=== PATIENT | male | born 1970 | race African-American/Black ===

== ENCOUNTER 2018-08-23 23:13 | Inpatient (IN) | payer OTHER ==
[~2018-08-23] VITALS: Ht 188 cm; Wt 147.4 kg
[2018-08-23 23:17] VITALS: Ht 188 cm; Wt 147.4 kg
--- NOTE | 2018-08-23 23:33 | NUR ---
PT BIB [facility] FOR ABDOMINAL PAIN X 3DAYS WITH N/V ON AND OFF THROUGHOUT NIGHT PT EXPRESSED PAIN 10/10 TO UPPER EPIGASTRIC AREA. PT IS A/O X 4 SPEECH MOOD AFFECT WNL. ABDOMIN IN DISTENDED AND HARD. DECREASED BOWL SOUNDS IN 3 QUADRANTS WITH HYPERACTIVE SOUNDS IN RIGHT UPPER QUADRANT SKIN HAS MULTIPLE CLOSED SCARES TO ABDOMIN AND BACK FROM GUNSHOOT WOUNDS. PT HAS LEFT LEG AMBUTATION. RESPIRATIONS ARE EVEN AND SWALLOW PT HAS HX OF HTN, DM AND CARDIAC. PT PLACED ON CHILD NURSE. PULSE OX. GOWN AND O2 DUE TO SATURATION. WILL CONTINUE TO MONITOR AND AWAIT MSE
--- NOTE | 2018-08-23 23:59 | NUR ---
LAB AT BEDSIDE
[2018-08-24] VITALS (7 sets, daily range): BP systolic 104–146; BP diastolic 79–90
--- NOTE | 2018-08-24 00:05 | NUR ---
PT TAKEN TO X RAY
[2018-08-24 00:14] LABS: BASOPHIL % 0.3 % (0-2); PLATELET COUNT 154 x10^3mcL (130-400); RED CELL DISTRIBUTION WIDTH 13.6 % (11.5-14.5)
--- NOTE | 2018-08-24 00:21 | NUR ---
PT REQUESTING WATER. MD ALDRIDGE MADE AWARE AND STATES NO WATER AT THIS TIME UNTIL RESULTS ARE BACK
[2018-08-24 00:28] LABS: CALCIUM 8.7 mg/dL (8.5-10.1); CARBON DIOXIDE 31.2 mmol/L (21-32); CHLORIDE SERUM 96 mmol/L (98-107); CREATININE SERUM 1.1 mg/dL (0.7-1.3); GFR1 > 60 mL/min; GLUCOSE SERUM 253 mg/dL (74-106); POTASSIUM SERUM 4.2 mmol/L (3.5-5.1); SODIUM SERUM 133 mmol/L (136-145)
--- NOTE | 2018-08-24 00:32 | NUR ---
PT AT BEDSIDE. PT STATES PT CHRISTINA OF OSTEOMYELITIS IS REASON FOR L LEG AMPUTATION, UTIS THAT HAVE BECOME SEPTIC X3.
[2018-08-24 00:33] LABS: ALBUMIN 3.5 g/dL (3.4-5.0); ALKALINE PHOSPHATASE 72 U/L (46-116); ALT/SGPT 22 U/L (16-63); AST/SGOT 14 U/L (15-37); BILIRUBIN TOTAL 0.4 mg/dL (0.20-1.00); LIPASE 108 IU/L (73-393); TOTAL PROTEIN, SERUM 7.9 g/dL (6.4-8.2)
--- NOTE | 2018-08-24 00:57 | NUR ---
URINE CATH INSERTED. PT TOLERATED PROCEDURE WELL. NO PAIN NOTED
--- NOTE | 2018-08-24 01:03 | NUR ---
ADMITING MD SPEAKING WITH PT FAMILY ABOUT CURRENT MEDICATIONS. VERIFY THAT MULITPLE MEDICATIONS WITH UNKNOWN DOSAGES. SHE ADVISED THAT SHE WOULD CALL WITH INFORMATION ABOUT MEDICATIONS
[2018-08-24] MEDS ORDERED: ZOCOR20 MG PO (01:55)
[2018-08-24] MEDS ORDERED: MICROZIDE12.5 MG PO (01:57)
[2018-08-24] MEDS ORDERED: CYMBALTA30 M1 PO (01:57)
[2018-08-24] MEDS ORDERED: NOR10 PO (01:57)
[2018-08-24] MEDS ORDERED: JANUVIA100 M1 PO (01:57)
[2018-08-24] MEDS ORDERED: GABAPENTIN800 M1 PO ×2 (01:58→01:59)
[2018-08-24] MEDS ORDERED: LYRICA75 M1 PO (01:58)
[2018-08-24] MEDS ORDERED: AMITRIPTYLINE H25 MG PO (01:59)
[2018-08-24] MEDS ORDERED: CYCLOBENZAPRINE10 MG PO (01:59)
[2018-08-24] MEDS ORDERED: METFORMIN HCL1000 MG PO (01:59)
[2018-08-24] MEDS ORDERED: OXYCODONE HYDRO30 MG PO (02:00)
[2018-08-24] MEDS ORDERED: BACLOFEN20 MG PO (02:01)
[2018-08-24] MEDS ORDERED: CARDURA2 MG PO (02:01)
--- NOTE | 2018-08-24 02:08 | NUR ---
CALLED TO VERIFY HOME MEDICATIONS
[2018-08-24 02:52] LABS: MAGNESIUM 1.5 mg/dL (1.8-2.4); PHOSPHOROUS 2.8 mg/dL (2.5-4.9)
[2018-08-24 03:01] LABS: CHOLESTEROL/HDL RATIO 3.7
[2018-08-24 03:11] LABS: microscopic required? YES; urine erythrocyte 1+ (NEGATIVE)
--- NOTE | 2018-08-24 03:52 | NUR ---
RECEIVED PT FROM ER VIA [facility] ACCOMPANIED WITH NURSE AND EMT, PT WAS ABLE TO TRANSFER HIMSELF FROM [facility] TO BED WITHOUT INCIDENT, PT SEEN, ALERT AND ORIENTED X 4 AND VERY VERBALLY RESPONSIVE, DENIES HEADACHE OR DIZZINESS, BREATHING EVEN AND UNLABORED, LUNG SOUNDS DIMINISHED, ON O2 2L VIA NC, NO RESP DISTRESS NOTED, ON TELE#9 ST, DENIES CHEST PAIN, PULSES PALPABLE TO BUE AND RLE, LEFT BKA, GENERALIZED WEAKNESS BUT ABLE TO REPOSITION HIMSELF IN BED, ABD FIRM AND DISTENDED WITH HYPOACTIVE BS X 4, LAST BM 08/23, DAVIS VIA GRAVITY DRAINING YELLOW URINE, NO OPEN PRESSURE INJURY NOTED, PT REFUSED NGT INSERTION, EXPLAINED THE RISK AND BENEFIT BUT PT STILL REFUSED, REFUSAL TREATMENT FORM SIGNED, DR MCNEIL MADE AWARE, SUPP GIVEN PER MD ORDER, NO DISTRESS NOTED, WILL KEEP TO MONITOR.
[2018-08-24 06:22] LABS: BASOPHIL % 0.2 % (0-2); PLATELET COUNT 148 x10^3mcL (130-400); RED CELL DISTRIBUTION WIDTH 13.6 % (11.5-14.5)
--- NOTE | 2018-08-24 06:26 | NUR ---
PT DROWSY BUT AROUSABLE AFTER MEDICATED WITH ATIVAN 2MG VIA IVP, BREATHING EVEN AND UNLABORED ON O2 2L VIA NC, NO N&V NOTED UPON ARRIVAL, IVF INFUSING WELL, NO DISTRESS NOTED, WILL KEEP TO MONITOR.
[2018-08-24 07:10] LABS: CALCIUM 8.7 mg/dL (8.5-10.1); CARBON DIOXIDE 27.3 mmol/L (21-32); CHLORIDE SERUM 97 mmol/L (98-107); CREATININE SERUM 1.1 mg/dL (0.7-1.3); GFR1 > 60 mL/min; GLUCOSE SERUM 268 mg/dL (74-106); MAGNESIUM 1.6 mg/dL (1.8-2.4); PHOSPHOROUS 3.2 mg/dL (2.5-4.9); POTASSIUM SERUM 4.7 mmol/L (3.5-5.1); SODIUM SERUM 133 mmol/L (136-145)
--- NOTE | 2018-08-24 07:17 | NUR ---
bedside report given to [place]-RN, all questions answered and concerns addressed.
--- NOTE | 2018-08-24 07:50 | NUR ---
RECEIVED PATIENT RESTING IN BED COMFORTABLY, WITH EYES CLOSED, AROUSABLE TO VERBAL STIMULI, PATIENT DROWSY BUT A/O X4, DENIES JIMENEZ OR DIZZINESS. TELE # [address], DENIES CHEST PAIN. BREATHING EVEN UNLABBORED ON O2 2 L/MIN VIA NC, NO DISTRESS NOTED. PATIENT WITH DAVIS CATH TO GRAVITY DRAINING YELLOW URINE, TUBING FREE OF KINKS, BAG IS OFF FLOOR. IV TO LAC INTACT INFUSING NS AT 175 ML/HR FREE FROM REDNESS AND INFILTRATION. PATIENT IS CALM WITH CARE. INSTRUCTED AND REINFORCED ON NPO STATUS, VERBALIZED UNDERSTANDING. SAFETY PRECAUTIONS IN PLACE, WILL MONITOR.
--- NOTE | 2018-08-24 08:30 | NUR ---
PORTABLE XRAY/TECH AT BEDSIDE FOR SBFT
--- NOTE | 2018-08-24 11:25 | NUR ---
PER PROMOTIONS ASSISTANT SHE ASSISTED PATIENT UP OUT OF BED TO USE RESTROOM USING WHEELCHAIR. PATIENT HAD X1 BM, AND ASSISTED BACK INTO BED AND MADE COMFORTABLE. SAFETY PRECAUTIONS MAINTAINED.
--- NOTE | 2018-08-24 12:00 | NUR ---
DR. BENITEZ MADE AWARE OF BS 167, PATIENT IS NPO, PER DR. BENITEZ DO NOT COVER PER SLIDING SCALE. DR. BENITEZ ALSO MADE AWARE SPOKE WITH DR. MONET THIS MORNING AND HE STATED TO HOLD AM MEDICATION, PER DR. BENITEZ CONTINUE TO HOLD PO MEDICATION AT THIS TIME, WILL CARRY OUT ORDER.
--- NOTE | 2018-08-24 13:16 | NUR ---
PATIENT RESTING IN BED WITH EYES CLOSED, RESTING COMFORTABLY NO DISTRESS NOTED. GAMAL AT BEDSIDE, PATIENT UPDATE GIVEN. PATIENTS REQUESTING TO SPEAK WITH MD, DR. BENITEZ MADE AWARE AND WILL BE IN TO SPEAK WITH PATIENT AND . SAFETY PRECAUTIONS IN PLACE. WILL MONITOR.
--- NOTE | 2018-08-24 13:51 | NUR ---
PATIENT C/O 10/10 THROBBING PAIN TO MID STOMACH RADIATING TO MID BACK. MEDICATED WITH NORCO PO (SEE eMAR). ALL NEEDS ATTENDED TO. SAFETY PRECAUTIONS IN PLACE, WILL MONITOR.
[2018-08-24 14:19] LABS: AMPHETAMINE QUAL UR NONE DETECTED (See below)
--- NOTE | 2018-08-24 14:40 | NUR ---
IV TO LAC LEAKING, REMOVED CATH INTACT. NEW IV PLACED TO RIGHT WRIST BY MARCO ANTONIO ANNE, PATIENT TOLERATED WELL, IVF RESUMED. PATIENT RESTING COMFORTABLY IN BED, NO DISTRESS NOTED. WILL MONITOR.
--- NOTE | 2018-08-24 16:15 | NUR ---
DR. BENITEZ MADE AWARE OF SMALL BOWEL FOLLOW THROUGH RESULTS. NO NEW ORDERS RECEIVED.
--- NOTE | 2018-08-24 16:33 | NUR ---
PATIENT C/O PAIN TO EPIGASTRIC AREA RADIATING TO MID BACK IS "ELEVATED", OFFERED FLEXERIL PO (SEE eMAR) BUT PATIENT REFUSED AND IS REQUESTING FOR A "PAIN SHOT." DR. BENITEZ MADE AWARE AND IS IN TO SPEAK WITH PATIENT AT THIS TIME.
--- NOTE | 2018-08-24 17:01 | NUR ---
PATIENT MEDICATED WITH MORPHINE 2 MG IVP (SEE eMAR) FOR PAIN TO EPIGASTRIC AREA RADIATING TO MID BACK 01/14, DESCRIBED IT A TIGHT/PULLING/THROBBING PAIN. ALL NEEDS ATTENDED TO. SAFETY PRECAUTIONS MAINTAINED. WILL MONITOR.
--- NOTE | 2018-08-24 19:20 | NUR ---
BEDSIDE REPORT GIVEN TO MAGUE COX, ALL QUESTIONS AND CONCERNS ADDRESSED, ALL CARES ENDORSED.
--- NOTE | 2018-08-24 19:37 | NUR ---
RECIEVED PT IN BED COMPLAINING OF ACUTE ABD PAIN INFORMED AND RECIEVED ORDER FOR TORADOL FOR PAIN (SEE JUN), PT WAS A/OX4 NO REPORTS OF JIMENEZ OR DIZZINESS, TELE MONITOR 9 ST, NO COMPLAINTS OF CHEST PAIN AT THIS TIME, LUNG SOUNDS DIMINISHED IN THE BILATERAL BASES OTHERWISE CTA, NO SOB AT THIS TIME ON RA, PERIPHERAL PULSES PALPABLE THROUGHOUT, HX OF LEFT BKA NO PEDAL PULSE TO THE LLE, BOWEL SOUNDS ACTIVE, ABD ROUND, DISTENDED AND FIRM, INFORMED DR YIN. PT HAS DAVIS IN PLACE DRAINING CLEAR YELLOW URINE, PT IS ABLE TO REPOSITION IN BED, BUT USES WHEELCHIR,, SAFETY PRECAUTIONS IN PLACE WILL CONTINUE TO MONITOR
--- NOTE | 2018-08-24 20:00 | NUR ---
PT VOMITED INTO A BAG, REPORTED NOT FEELING NAUSEA ANYMORE, PT REQUESTING TO SEE THE DR, NOTIFIED DR YIN, SAID HE WOULD BE THERE SOON, INFORMED PT AND FAMILY OF DR YIN RESPONSE.
--- NOTE | 2018-08-24 20:20 | NUR ---
DR YIN HAS NOT YET COME TO PATIENT BEDSIDE, PT REQUEST TO TALK TO CHARGE NURSE ABOUT TAKING PATIENT OUT OF HOSPITAL AND TO "SOMEWHERE WHO CAN PROVIDE HIM WITH THE CARE HE NEEDS" INFORMED CHARGE NURSE GABRIEL, CALLED COMMERCIAL MORTGAGE BROKER TO, WHO CALLED DR YIN TO GO TO BEDSIDE, DR YIN AT BEDSIDE EXPLAINED PLAN OF CARE AND REASON FOR INSERTION OF NGT, PT HAD REFUSED DURING EVELYN SHIFT DUE TO ANXIETY ABOUT THE PROCEEDURE. DR YIN ORDERED ATIVAN TO BE ADMINISTERED PRIOR TO NGT INSERTION. AFTER DR YIN TALKED TO FAMILY AND PATIENT, THEY AGREED TO NOT LEAVE AMA.
--- NOTE | 2018-08-24 20:45 | NUR ---
ATTEMPTED TO INSERT NGT, PATIENT MOVED HIS HEAD ALL OVER THE PLACE AND WAS NOT ABLE TO INSERT IT ON FIRST OR SECOND ATTEMPT WITH A 16 FR NGT, BERNARDO COX ATTEMPTED THIRD TIME WITH 12 FR AND WAS UNABLE TO INSERT IT, PT REFUSED US ATTEMPTING ANYMORE, INFORMED DR IYN.
--- NOTE | 2018-08-24 21:21 | NUR ---
PT BLOOD SUGAR 175, CONTACTED DR YIN ABOUT NOT COVERING DUE TO DR YIN ADVISING PATIENT NOT TO EAT FOR NOW, DR YIN AGREED AND I HELD COVERAGE
--- NOTE | 2018-08-24 23:00 | NUR ---
PT SLEEPING IN BED COMFORTABLY NO ACUTE DISTRESS AT THIS TIME, REPIRATIONS EVEN AND UNLABORED, SAFETY PRECAUTIONS IN PLACE, WILL CONTINUE TO MONITOR
--- NOTE | 2018-08-25 01:16 | NUR ---
PT SLEEPING COMFORTABLY NO ACUTE SIGNS OF DISTRESS NOTED AT THIS TIME, RESPIRATIONS EVEN AND UNLABORED, SAFETY PRECAUTIONS IN PLACE, WILL CONTINUE TO MONITOR
--- NOTE | 2018-08-25 03:30 | NUR ---
PT SLEEPIM IN BED COMFORTABLY, NO SIGNS OF ACUTE DISTRESS AT THIS TIME, RESPIRATIONS EVEN AND UNLABORED SAFETY PRECAUTIONS IN PLACE WILL CONTINUE TO MONITOR
--- NOTE | 2018-08-25 05:16 | NUR ---
PT SLEPT THROUGH MOST OF THE NIGHT AND PAIN WAS CONTROLLED WITH PRN MORPHINE AND TORADOL PER ORDERS (SEE MAR), PT HAD ONE EPISODE OF VOMITTING AT THE BEGGINING OF THE SHIFT, NGT INSERTION WAS ATTEMPTED 3 TIMES (TWICE WITH AND ONCE WITH BERNARDO) WHICH WERE INSUCCESFUL, NOTIFIED MD AND STATED TO MANAGE PATIENT AND WAIT UNTIL MORNING, SAFETY PRECAUTIONS WERE MAINTAINED THROUGH THE NIGHT, WILL CONTINUE TO MONITOR AND ENDORSE CARE TO ONCOMING RN
[2018-08-25 05:45] VITALS: BP 141/91
[2018-08-25 06:42] LABS: CALCIUM 8.6 mg/dL (8.5-10.1); CHLORIDE SERUM 99 mmol/L (98-107); CREATININE SERUM 1.1 mg/dL (0.7-1.3); GFR1 > 60 mL/min; GLUCOSE SERUM 184 mg/dL (74-106); MAGNESIUM 1.6 mg/dL (1.8-2.4); PHOSPHOROUS 3.1 mg/dL (2.5-4.9); POTASSIUM SERUM 4.1 mmol/L (3.5-5.1); SODIUM SERUM 127 mmol/L (136-145)
[2018-08-25 07:04] LABS: BASOPHIL % 0.3 % (0-2); PLATELET COUNT 139 x10^3mcL (130-400); RED CELL DISTRIBUTION WIDTH 13.7 % (11.5-14.5)
--- NOTE | 2018-08-25 07:45 | NUR ---
RECEIVED PATIENT A/A/OX3. TELE#9; ST; HR = 120/MIN. NO RESP DISTRESS ON RA. ABD ROUND/SOFT. C/O ABD PAIN 5/10 AND HUNGRY. PATIENT REPORTED HAD SMALL BM YESTERDAY AND BM SMEAR THIS FOOD AND BEVERAGE LEAD. DAVIS PATENT WITH ENRIQUE COLORED URINE IN BAG. IVF OF NS 175CC/HR. I V ISTE TO RW INTACT. LT BKA. NO EDEMA SEEN TO RLE. CALL LIGHT IN REACH.
--- NOTE | 2018-08-25 08:10 | NUR ---
PATIENT WAS C/O ABD PAIN AND ASKED PAIN MEDS. MORPHINE PREPARED. ENTO ROOM. FOUND PATIENT WAS SLEEPING NOW.
--- NOTE | 2018-08-25 08:30 | NUR ---
PATIENT A/A/OX3; C/O ABD PAIN ON 09/14; MORPHINE 2MG IVP GIVEN. PATIENT C/O HUNGERY. BREAKFAST TRAY WAS HOLD. PATIENT HAD ORDER OF [facility] DIET AND NGT INSERTION. NOC NURSES FAILED TO NGT INSERTION. VERIFIED WITH BESSIE BRANTLEY. SHE SAID OK TO FEED PATIENT. HOLD NGT INSERTION FOR LURDES MILLER CONSULTATION.
--- NOTE | 2018-08-25 09:30 | NUR ---
DR. SIDDIQUI SAW PATIENT. FOUND PATIENT FINISHED 100% OF [facility] DIET BREAKFAST. PATIENT WAS SLEEPING NOW. NO S/S OF PAIN.
--- NOTE | 2018-08-25 09:45 | NUR ---
REPORTED TO Ramy BRANTLEY - PATIENT'S AND OTHER FAMILY MEMBERS WERE WAITING IN ROOM AND WANTED TO SEE DOCTOR. KARON SAID THAT SHE WAS IN ICU NOW. SHE WOULD COME TO SEE PATIENT.
[2018-08-25 09:47] VITALS: BP 144/95
--- NOTE | 2018-08-25 10:30 | NUR ---
PATIENT DIDN'T REPORT NAUSEA. WHEN PATIENT'S CALLED ME TO SEE VOMITUS IN BAG. 100CC OF YELLOWISH BROWN WATERY VOMITUS SEEN. PATIENT SAID NAUSEA AND VOMITING SUBSIDED.
--- NOTE | 2018-08-25 10:44 | NUR ---
MIKE CONTACTED TWO TIME RE: FAMILY CONCERNS ABOUT PATIENT VOMITING AND REQUEST TO SPEAK WITH PHYSICIAN ABOUT PLAN OF CARE. MIKE SAID THAT SHE IS IN ICU IN A FAMILY MEETING AND SHE WILL COME SOON SHE IS DONE. WENT TO THE ROOM TO GIVE UPDATES TO PATIENT AND HIS BUT WAS VERY MAD, YELLING AT STAFF THAT SHE IS DONE WITH THIS HOSPITAL AND NURSES WERE NOT CAPABLE TO INSERT NGT, AND REGISTERED NURSE FIRST ASSISTANT JAKE DID NOT COME TO TALK TO HER AT 10:00. I EXPLAINED TO THE FACT THAT NURSES ATTEMPTED THE NGT INSERTION AND THE PATIENT DID NOT WANT THEM TO TRY AGAIN THE INSERTION. ALSO INFORMED PATIENT'S THAT SURGEON AND ATTENDING PHYSICIAN ARE AWARE. SPOKE WITH JAKE AND WENT TO THE ROOM TO SPEAK WITH PATIENT'S AT THIS TIME. SHANELL BERGMAN ALSO IN THE ROOM TALKING TO PATIENT AND HIS . ATTENDING NURSE SAHIL- AWARE. YARY- [facility] DIRECT[facility] MADE AWARE.
--- NOTE | 2018-08-25 11:08 | NUR ---
PATIENT'S REQUESTED TO LEAVE AMA. PATIENT SIGNED AMA BEFORE KARON,COMMERCIAL DRIVER'S LICENSE DRIVER, CAME FROM ICU TO SEE PATIENT.
--- NOTE | 2018-08-25 11:15 | NUR ---
KARON CAME TO SEE PATIENT AND TALKED WITH PATIENT'S .
--- NOTE | 2018-08-25 11:30 | NUR ---
DR. Mikel LOCKHART GAVE PATIENT NGT INSERTION. BUT PATIENT REFUSED. PATIENT WAS NOT CO-OPERATIVE.
--- NOTE | 2018-08-25 12:30 | NUR ---
PATIENT WENT TO BATHROOM AFTER CITRATE OF MAGNESIA 300ML PO GIVEN AT 1207.
--- NOTE | 2018-08-25 12:55 | NUR ---
PATIENT VOMITED 1 MINUTE AFTER SENOKOT 2 TOB PO GIVEN W/ WATER. 10-20ML OF WATERY VOMITUS SEEN. NO PILL SEEN. PATIENT REFUSED OTHER ORAL MEDS.
--- NOTE | 2018-08-25 12:55 | NUR ---
REPORTED NO BM MADE AFTER CITRATE OF MAGNESIA.
--- NOTE | 2018-08-25 13:15 | NUR ---
PATIENT LEFT AMA. IV D/C'D. OVER NEEDLE CATH INTACT. DAVIS D/C'D. 500CC OF ENRIQUE URINE COLLECTED. DAVIS CATH INTACT. MORPHINE 2MG IVP GIVEN AT 1219. NO C/O PAIN NOW. CONDITION STABLE. LEFT W/ AND MOTHER.
== END 2018-08-25 13:15 | disposition left against medical advice (07) | DRG 247 ==
LOC: ED 23:13 → DU 08-24 01:41
PROVIDERS: Emergency Medicine; ADMIT Internal Medicine
DX: K56.609 Unspecified intestinal obstruction, unspecified as to partial versus complete obstruction (principal); E11.40 Type 2 diabetes mellitus with diabetic neuropathy, unspecified; E11.65 Type 2 diabetes mellitus with hyperglycemia; E83.42 Hypomagnesemia; F11.20 Opioid dependence, uncomplicated; N31.9 Neuromuscular dysfunction of bladder, unspecified; I10 Essential (primary) hypertension; N39.0 Urinary tract infection, site not specified; E78.5 Hyperlipidemia, unspecified; K59.00 Constipation, unspecified; E66.9 Obesity, unspecified; Z53.21 Procedure and treatment not carried out due to patient leaving prior to being seen by health care provider; F17.210 Nicotine dependence, cigarettes, uncomplicated; G47.33 Obstructive sleep apnea (adult) (pediatric); Z99.3 Dependence on wheelchair; Z79.4 Long term (current) use of insulin; Z68.39 Body mass index [BMI] 39.0-39.9, adult; Z89.512 Acquired absence of left leg below knee; Z98.1 Arthrodesis status; Z88.1 Allergy status to other antibiotic agents; Z88.2 Allergy status to sulfonamides; Z83.3 Family history of diabetes mellitus; Z82.49 Family history of ischemic heart disease and other diseases of the circulatory system
CPT/HCPCS: 82962; J1885; J1956; J2060; J2270; J2405; J2765; J7030; Q0092; Q9967

== ENCOUNTER 2019-03-19 22:56 | Inpatient (IN) | payer OTHER ==
[~2019-03-19] VITALS: Ht 188 cm; Wt 138.5 kg
[~2019-03-19 22:56] MED LIST: AMITRIPTYLINE H25 MG PO; BACLOFEN20 MG PO; CARDURA2 MG PO; CYCLOBENZAPRINE10 MG PO; CYMBALTA30 M1 PO; GABAPENTIN800 M1 PO; JANUVIA100 M1 PO; LYRICA75 M1 PO; METFORMIN HCL1000 MG PO; MICROZIDE12.5 MG PO; NOR10 PO; OXYCODONE HYDRO30 MG PO; ZOCOR20 MG PO
--- NOTE | 2019-03-19 23:10 | NUR ---
ARRIVED TO BED 7 VIA GURNEY BY CAMRON
[2019-03-19 23:17] VITALS: Ht 188 cm; Wt 138.5 kg
--- NOTE | 2019-03-19 23:17 | NUR ---
PT. PRESENTS TO THE ER C/O GROIN PAIN, LEFT CREASES OF SCROTUM AREA, 01/14, SHARP, CONSTANT, 1400 TODAY, FEVER AND CHILLS, LEFT LEG AMPUTATED, PT. STATES HE HAD OSTEOMYELITIS BEFORE, PT. WENT TO SEE FOR WOUND FOR LEFT EXTREMITY, OPEN WOUND NOTED, NO ODOR, NO DRAINAGE, MOIST, AND WAS GIVEN ANTIOBIOTICS YESTERDAY, DENIES SOB, DENIES CHEST, PAIN, DENIES N/V/D, INCONTINET TO URINE, STATES HE HAD FEVER AND CHILLS, DENIES ANY OTHE SYMPTOMS, PLACED ON JAYLA VILLAFANA HR 133, MADE AWARE, REPOSITIONED FOR COMFORT, WILL CONTINUE TO MONITOR, CALL LIGHT WITHING REACH
--- NOTE | 2019-03-19 23:17 | NUR ---
DR. HERZOG AT BEDSIDE WITH MSE
[2019-03-19 23:47] LABS: BASOPHIL % 0.1 % (0-2); PLATELET COUNT 203 x10^3mcL (130-400); RED CELL DISTRIBUTION WIDTH 13.1 % (11.5-14.5)
[2019-03-19 23:52] LABS: CALCIUM 8.9 mg/dL (8.5-10.1); CARBON DIOXIDE 24.2 mmol/L (21-32); CREATININE SERUM 1.4 mg/dL (0.7-1.3); POTASSIUM SERUM 4.3 mmol/L (3.5-5.1)
[2019-03-19 23:58] LABS: ALBUMIN 3.1 g/dL (3.4-5.0); BILIRUBIN TOTAL 0.6 mg/dL (0.20-1.00)
--- NOTE | 2019-03-20 00:43 | NUR ---
MEDICATED PT PER MD ORDER, PT. TOLERATED WELL, SEE EMAR
--- NOTE | 2019-03-20 01:33 | NUR ---
CHANGE OF CONDITION NOTED, PT. BECAME DIAPHORETIC, LETHARGIC, ABLE TO ANSWER PERSON, PLACE AND TIME, MADE AWARE IMMEDIATELY, PER PT. STATES HE DOES NOT FEEL ANYTHING DIFFERENT, BS 191, 1 L FLUIDS OPEN WIDE PER DR. HERZOG, NEW EKG OBTAINED, PER DIEGO RESTART ANTIBIOTICS, WILL CONTINUE TO MONITOR
--- NOTE | 2019-03-20 01:38 | NUR ---
DR. HERZOG AT BEDSIDE WITH PT
--- NOTE | 2019-03-20 02:00 | NUR ---
PT. SITTING UP IN BED, NO LONGER DIAPHORETIC, FLUIDS RUNNING OPEN PER DR, PT. STATES HE FEELS TIRES, ANSWERS TO PERSON, PLACE, TIME, SITUATION, INTERMITTENT PAUSING WHEN ANSWERING QUESTIONS NOTED, PT. STATES HE FEELS VERY TIRED AND SLEEPY, STATES HIS PAIN LEVEL HAS DECREASED TO 5/10, REPOSITIONED FOR COMFORT, WILL CONTINUE TO MONITOR, IN VIEW OF STAFF,
--- NOTE | 2019-03-20 03:15 | NUR ---
CALLED GAMAL AT [phone] LEFT MESSAGE TO PLEASE BRING MEDICATIONS LIST
--- NOTE | 2019-03-20 03:51 | NUR ---
REPORT CALLED TO SONJA COX TELE
--- NOTE | 2019-03-20 04:45 | NUR ---
PAGED [facility] FOR ADMISSION ORDERS, WILL WAIT FOR CALL BACK.
--- NOTE | 2019-03-20 04:45 | NUR ---
RECEIVED PT VIA [facility]Y FROM ER, PT TRANSFERED FROM [facility] TO BED WITH MODERATE ASSISTANCE D/T PAIN. AOX4, DENIES JIMENEZ/DIZZINESS. PT SLEEPY YET AROUSEABLE. TELE #14, ST W. OCCASIONAL PVC'S. DENIES CP. PT PRESENTED TO THE ER WITH SCROTAL CELLULITIS, RECEIVED ANCEF AND CLEOCIN IN THE ER. PT A BKA (2014) D/T OSTEOMYLITIS, WELL A SMALL [place]CK[place] WOUND AT THE END WHICH IS DRY (BILINGUAL SPANISH INBOUND SALES). RESP EVEN AND UNLABORED ON 2LNC, DENIES SOB. ABD SOFT, OBESE PT, BOWEL SOUNDS ACTIVE X4 QUAD. DENIES ABD PAIN. PT WITH DAVIS CATH DRAINING CLOUDY YELLOWISH URINE, PT REPORTS FREQUENT DAVIS CATH USE D/T INCONTINENCE. PT ALSO PRESENTS WITH A PARTIAL TIP OF PENIS D/T TRAUMA. WHITE DISCHARGE NOTED TO THE PENIS. PERFORMED DAVIS CARE AND ENSURE STAT LOCK IS NOT PULLING ON TIP OF PENIS CAUSING MORE TRAUMA. PT REPORTS MOST PAIN IN THE LEFT SIDE OF SCROTAL NEAR FOLD BETWEEN THIGH AND GROIN. NONDRAINING. PULSES PALPABLE RLE, BUE. DENIES NUMBNESS/TINGLING IN FEET. IV SITE TO THE LEFT HAND, NOREDNESS, SWELLING OR PAIN NOTED. ORIENTED PT TO ROOM AND CALL LIGHT, BED IN LOWEST POSITION, WILL CONTINUE TO MONITOR.
[2019-03-20 05:03] VITALS: BP 103/64
--- NOTE | 2019-03-20 07:05 | NUR ---
RECEIVED PT FROM NIGHT NURSE. PT IS LAYING DOWN IN BED WITH HOB UP RESTING. PT LOOKS TO BE IN NO ACUTE DSITRESS AT THIS TIME. RESPIRATIONS EVEN AND UNLABORED ON 2L NC. IV SITE PATENT WITH NO SIGNS OF ERYTHEMA OR SWELLING WITH IV FLUIDS INFUSING. CALL LIGHT WITHIN REACH, BED IN LOWEST POSITION, WILL CONTINUE TO MONITOR.
--- NOTE | 2019-03-20 07:40 | NUR ---
ENDORSED ALL CARE TO DAYSHIFT NURSE, ALL QUESTIONS AND CONCERNS ADRESSED, CALL LIGHT WITHIN REACH, BED IN LOWEST POSITION. ALL COMFORT AND SAFETY MEASURES PROVIDED FOR.
[2019-03-20 08:03] LABS: BASOPHIL % 0.4 % (0-2); PLATELET COUNT 168 x10^3mcL (130-400); RED CELL DISTRIBUTION WIDTH 13.3 % (11.5-14.5)
[2019-03-20 08:11] VITALS: BP 113/76
[2019-03-20 08:37] LABS: CALCIUM 8.9 mg/dL (8.5-10.1); CARBON DIOXIDE 25.6 mmol/L (21-32); CREATININE SERUM 1.9 mg/dL (0.7-1.3); POTASSIUM SERUM 4.6 mmol/L (3.5-5.1)
--- NOTE | 2019-03-20 09:00 | NUR ---
PT COMPLAINING OF 8/10 PAIN TO THE LOWER EXTREMITIES. NOTED AN INCISION TO THE LEFT UPPER THIGH NEAR GROIN AREA. PT STATED THAT HE HAS HAD THE INCISION FOR A COUPLE OF DAYS AND STATED THAT HIS DRClifford TOLD HIM THAT "IT IS A STAPH INFECTION." NO DRAINAGE NOTED TO THE INCISION. SIZE OF WOUND IS 2.8X1 WITH NO UNDERMINING OR TUNNELING NOTED. PICTURE TAKEN AND PUT INTO THE CHART. WILL MEDICATE ACCORDING TO EMAR.
[2019-03-20 09:46] LABS: UA SPECIFIC GRAVITY >=1.030 (1.005-1.035); microscopic required? YES; urine erythrocyte 3+ (NEGATIVE)
[2019-03-20 11:02] LABS: AMPHETAMINE QUAL UR NONE DETECTED (See below)
--- NOTE | 2019-03-20 11:40 | NUR ---
ULTRASOUND AT BEDSIDE.
[2019-03-20 12:34] VITALS: BP 119/72
--- NOTE | 2019-03-20 13:30 | NUR ---
PT'S AT BEDSIDE AND BROUGHT ALL OF PT'S HOME MEDICATION. CONFIRMED PT'S HOME MEDICATION WITH MED REC ON EMAR. WILL UPDATE HOME MED REC ON EMAR.
[2019-03-20] MEDS ORDERED: PRINIVIL20 MG PO (14:07)
[2019-03-20] MEDS ORDERED: HYDRALAZINE HCL25 MG PO (14:08)
[2019-03-20] MEDS ORDERED: ALOGLIPTIN25 MG PO (14:08)
[2019-03-20] MEDS ORDERED: OXYC PO (14:10)
[2019-03-20 16:15] VITALS: BP 157/86
--- NOTE | 2019-03-20 18:56 | NUR ---
PT IS LAYING DOWN IN BED WITH HOB UP. PT LOOKS TO BE IN NO ACUTE DISTRESS AT THIS TIME AND IS COMPLAINING OF PAIN 11/14 TO BLE, MEDICATED PT FOR PAIN AT 1848. RESPIRATIONS EVEN AND UNLABORED ON ROOM AIR. DAVIS CATHETER PRESENT DRAINING YELLOW CLOUDY URINE. IV SITE PATENT WITH NO SIGNS OF ERYTHEMA OR SWELLING WITH IV FLUIDS INFSUING. CALL LIGHT WITHIN [facility]. WILL ENDORSE TO ONCOMING SHIFT.
[2019-03-20 19:21] VITALS: BP 114/61
--- NOTE | 2019-03-20 20:17 | NUR ---
RECEIVED REPORT FROM JOSE COX. PT IS AAOX4 AND DENIES HEADACHE OR DIZZINESS AT THIS TIME. PT IS ON TELE #14, SINUS TACHY WITH HR 143. PT DENIES CHEST PAIN OR PRESSURE AT THIS TIME. PT PULSES PALPABLE AND CAP REFILL <3 SEC. PT HAS TRACE EDEMA TO LLE. PT HAS HX OF LEFT BKA. PT LUNG SOUNDS CTA ON RA. PT BREATHING EVEN AND UNLABORED. PT DENIES SOB OR RESPIRATORY DISTRESS AT THIS TIME. PT ABD IS SOFT AND ROUND. PT BOWEL SOUNDS ARE ACTIVE X4. PT HAS A DAVIS CATH IN PLACE DRAINING CLOUDY YELLOW URINE. PT HAS GENERALIZED WEAKNESS AND IS WHEELCHAIR BOUND. PT IS ON AIR MATTRESS. PT HAS LEFT RESIDUAL OPEN WOUND TO KNEE-PROCESS PUMPER, HEALED INCISION TO LEFT UPPER THIGH-PROCESS PUMPER, SCAB TO THE RIGHT LATERAL ANKLE-PROCESS PUMPER. PT C/O PAIN TO THE BLE AND ABD 8/10 AT THIS TIME. PT IV IS PATENT AND INTACT. IVF IS INFUSING WELL. CALL LIGHT WITHIN REACH. BED IN LOWEST POSITION. SIDE RAILS X2 UP. WILL CONTINUE TO MONITOR.
--- NOTE | 2019-03-20 22:10 | NUR ---
PT UNABLE TO SLEEP DUE TO PAIN IN GROIN AREA. PER MAR ADMINISTERED MORPHINE FOR PAIN. WILL REASSESS PAIN LEVEL. WILL CONTINUE TO MONITOR.
--- NOTE | 2019-03-21 01:05 | NUR ---
PT IS ASKING FOR TORADOL MEDICATION. PER MAR, ADMINISTERED TORADOL FOR PAIN. WILL REASSESS PAIN. WILL CONTINUE TO MONITOR.
--- NOTE | 2019-03-21 02:00 | NUR ---
PT STATES HE IS STILL IN A LOT OF PAIN. PER MAR ADMINISTERED MORPHINE FOR PAIN. WILL REASSESS PAIN LEVEL. WILL CONTINUE TO MONITOR.
--- NOTE | 2019-03-21 04:58 | NUR ---
PT SLEPT INTERMITTENTLY THROUGHOUT THE SHIFT. PT COMPLIED WITH NURSING CARE DURING THE SHIFT. PT C/O PAIN TO LLE AND STATES THAT THE MORPHINE AND TORADOL IS NOT WORKING FOR HIM. WILL MAKE AWARE. COMFORT AND SAFETY MEASURES MAINTAINED. ALL NEEDS AND CONCERNS ADDRESSED. WILL ENDORSE CARE TO DAY SHIFT NURSE. WILL CONTINUE TO MONITOR.
[2019-03-21 05:00] VITALS: BP 119/72
--- NOTE | 2019-03-21 07:24 | NUR ---
RECEIVED HAND OFF REPORT FROM NIGHT NURSE, BROOKE SANTOS. PATIENT AWAKE AND ALERT, SITTING UP ON SIDE OF BED PREPARING TO TRANSFER TO RESTROOM. SHIPYARD HELPER OSBALDO PRESENT WITH WHEELCHAIR TO ASSIST. PAITNET A/O X4, NO BREATHING DIFFICULTY, TELE 14 PRESENT ON CHEST: ST AT 110. DAVIS CATGH IN PLACE DRAINING CLEAR YELLOW URINE. LEFT BKA, DRESSING CDI. NOT COMPLAINING OF PAIN CALL LIGHT WITHIN REACH
--- NOTE | 2019-03-21 08:01 | NUR ---
PATIENT COMPLAINING OF SEVERE PAIN TO GROIN AREA. REQUESTING PAIN MEDICATION. ADMINISTERED TORADOL IVP PER JUN.
[2019-03-21 08:34] VITALS: BP 132/79
[2019-03-21 08:42] LABS: CALCIUM 8.7 mg/dL (8.5-10.1); CARBON DIOXIDE 25.4 mmol/L (21-32); CHLORIDE SERUM 98 mmol/L (98-107); CREATININE SERUM 1.2 mg/dL (0.7-1.3); GFR1 > 60 mL/min; GLUCOSE SERUM 178 mg/dL (74-106); POTASSIUM SERUM 4.6 mmol/L (3.5-5.1); SODIUM SERUM 133 mmol/L (136-145)
[2019-03-21 08:56] LABS: BASOPHIL % 0.1 % (0-2); PLATELET COUNT 183 x10^3mcL (130-400); RED CELL DISTRIBUTION WIDTH 13.3 % (11.5-14.5)
[2019-03-21 12:05] VITALS: BP 127/71
--- NOTE | 2019-03-21 12:56 | NUR ---
PATIENT IN CONTINUAL PAIN. SPOKE WITH DR ARAGON AND INFORMED HIM OF PATIETN STATUS. RECEIVED ORDER FOR CT SCAN OF PELVIS TO RULE OUT SCROTAL MASS. ALSO ORDER FOR DILUADID 1MG IVP [id number]
--- NOTE | 2019-03-21 13:45 | NUR ---
PATIENT SLEEPING A TTHIS TIME. AWAITING CT SCAN
[2019-03-21 15:40] VITALS: BP 130/73
--- NOTE | 2019-03-21 15:53 | NUR ---
DR ARAGON SPOKE WITH FAMILY AND CONTINUED HOME MEDICATIONS. PATIENT DOWNSTAIRS FOR CT
--- NOTE | 2019-03-21 15:55 | NUR ---
RECEIVED A CALL FROM TO TRANSFER PT TO HIGHER LEVEL OF CARE FOR UROLOGY SPECIALIST CONSULT. CALLED AND SPOKE TO ERICK RUELAS(CHAR FILTER TANK TENDER) AND MADE HER AWARE OF ABOVE. AMARILYS COX ASSIGNED TO THIS PT MADE AWARE OF ABOVE.
[2019-03-21 16:28] VITALS: BP 130/73
--- NOTE | 2019-03-21 16:41 | NUR ---
(ATTENDING) CAME IN AND EVAL PT, SPOKE TO PT AND , DISCUSSED TO PT AND PLAN OF CARE AND ALL QUESTIONS ANSWERED & BOTH VERBALIZED UNDERSTANDING TO EXPLANATION GIVEN. AMARILYS RN ASSIGNED TO THIS PT AWARE OF ABOVE.
--- NOTE | 2019-03-21 17:17 | NUR ---
IN AND MADE HIM AWARE OF CT SCAN RESULT. CAME BACK IN PT ROOM AND EXPLAINED RESULT TO PT AND , HE ALSO EXPLAINED TO BOTH OF THEM THAT PT WILL BE NEEDING A UROLOGY SPECIALIST FOR POSSIBLE SURGERY AND THAT PT NEED TO BE TRANSFERRED TO A HIGHER LEVEL OF CARE, BOTH HAD VERBALIZED UNDERSTANDING. AMARILYS COX ASSIGNED TO THIS PT MADE AWARE OF ABOVE.
--- NOTE | 2019-03-21 19:00 | NUR ---
RECEIVED REPORT FROM AMARILYS COX. PT AAOX4 AND SITTING UP IN BED WATCHING TV AT THIS TIME. PT DENIES HEADACHE OR DIZZINESS AT THIS TIME. PT ON TELE #14, SINUS TACHY WITH HR 123. PT DENIES CHEST PAIN OR PRESSURE AT THIS TIME. PT PULSES PALPABLE AND CAP REFILL <3 SEC. PT HAS TRACE EDEMA TO LLE. PT LUNG SOUNDS ARE CTA ON RA. PT BREATHING EVEN AND UNLABORED. PT DENIES SOB OR RESPIRATORY DISTRESS AT THIS TIME. PT ABD SOFT AND ROUND. PT IS OBESE. PT BOWEL SOUNDS ACTIVE X4. PT DENIES N/V/D AT THIS TIME. PT HAS DAVIS CATH DRAINING YELLOW URINE. PT STRAIGHT CATH HIMSELF AT HOME. PT HAS GENERALIZED WEAKNESS AND IS WHEELCHAIR BOUND. PT REQUIRES ASSIST WHEN TRANSFERRING FROM BED TO WHEELCHAIR. PT HAS LEFT RESIDUAL LIMP OPEN WOUND-MEDICAL ASSISTANT SUPERVISOR, HEALED INCISION TO LEFT UPPER THIGH-MEDICAL ASSISTANT SUPERVISOR, AND SCAB TO RIGHT LATERAL ANKLE. PT IS ON AIR MATTRESS. PT C/O PAIN TO BLE AND GROIN AREA. WILL MEDICATE FOR PAIN PER MAR. PT IV IS PATENT AND INTACT. NO S/S OR REDNESS, PAIN, OR SWELLING NOTED. DRESSING CHANGED ON IV. PT CALM AND COOPERATIVE WITH NURSING CARE. CALL LIGHT WITHIN REACH. BED IN LOWEST POSITION. SIDE RAILS X2 UP. WILL CONTINUE TO MONITOR.
--- NOTE | 2019-03-21 20:08 | NUR ---
CALLED [facility] FOR TRANSFER HIGHER LEVEL OF CARE, FAXED NECESSARY PAPER WORKS, AND [facility] WORK[facility] IN [place] RESPONDED THAT SHE IS REVIEWING PAPER WORKS. [facility]IL[facility] WORKER TERRENCE SAID, THEY MIGHT NOT BE ABLE TO ADMIT THESE PTS TONIGHT. THEY WILL ALL FOLLOW UP.
[2019-03-21 20:37] VITALS: BP 153/87
--- NOTE | 2019-03-21 21:00 | NUR ---
COMMUNITY PROGRAM ASSISTANT REPORTED THAT PT HAD TEMP OF 102.2F. PT HAD HEATER ON IN ROOM AT 90F. TURNED ON A/C TO 68F AND REMOVED BLANKETS FROM PT. INFORMED PT THAT COOLING MEASURES NEED TO BE IMPLEMENTED TO REDUCE HIS FEVER. PER MAR, ADMINISTERED TYLENOL FOR FEVER >100.4F. WILL CONTINUE TO MONITOR.
--- NOTE | 2019-03-21 21:15 | NUR ---
RECEIVED A CALL FROM [facility]- STATED DR SCANLON IS THE ACCEPTING DR AND THAT SHE WILL CALL US BACK AROUND 0630 IF A BED IS AVAILABLE AND IS SO THEY WILL CALL US BACK AROUND 0700 FOR BED ASSIGNMENT AND TRANSFER SHOULD BE AFTER 0700. WE WILL RELAY ABOVE INFORMATION TO CN IN 2S AND ASSIGN RN.
--- NOTE | 2019-03-21 21:55 | NUR ---
VERIFIED WITH ASSIGNED NURSE ABOUT ISOLATION ON PATIENT,TOM QueenRN STATED PATIENT HAD HX; OF MRSA/NARES BUT MRSA SWAB ON THIS ADMISSION CAME BACK NEGATIVE. [facility] INFORMED ABOUT ABOVE INFORMATION, AND ALSO INFORMED HER TO THAT PATIENT WTS-305.5 LBS.
--- NOTE | 2019-03-21 22:37 | NUR ---
RECEIVED A FAX PAPER FOR TRANSFER BACK AGREEMENT FROM [facility]. ADMINISTRATIVE APPROVAL OK'D AND RECEIVED FROM [facility] DIESEL TRACTOR ENGINE MECHANIC. FAXED BACK AT 4618 TO [facility] AT [phone].
--- NOTE | 2019-03-21 22:50 | NUR ---
PT SITTING UP IN BED WATCHING TV. PT STATES THAT HE IS IN PAIN. PER MAR, TORADOL WILL BE ADMINISTERED. IVF INFUSING WELL. IV STILL INTACT AND PATENT. NO S/S OF REDNESS, PAIN, OR SWELLING NOTED. CALL LIGHT WITHIN REACH. BED IN LOWEST POSITION. SIDE RAILS X2 UP. WILL CONTINUE TO MONITOR.
--- NOTE | 2019-03-21 23:05 | NUR ---
SPOKE WITH DR. MORENO AND MADE AWARE THAT PT URINE CULTURE CAME BACK POSITIVE FOR YEAST. DR. MORENO GAVE ORDERS FOR DIFLUCAN 100MG PO DAILY AND AZACTAM 1G IV Q8H. PER PHARMACY, CONSULTATION REGARDING ROCEPHIN ALLERGY REACTION NEEDS TO BE DISCUSSED WITH . PER DR. MORENO, ZOSYN WAS D/C DUE TO PT HAVING ALLERGY TO ROCEPHIN AND PT STATES HE HAD CODED BEFORE ON IT. WILL CARRY OUT ORDERS.
--- NOTE | 2019-03-21 23:35 | NUR ---
RECEIVED REPORT FROM AMARIL[facility]. PT AAOX4 AND SITTING UP IN BED WATCHING TV AT THIS TIME. PT DENIES HEADACHE OR DIZZINESS AT THIS TIME. PT ON TELE #14, SINUS TACHY WITH HR 123. PT DENIES CHEST PAIN OR PRESSURE AT THIS TIME. PT PULSES PALPABLE AND CAP REFILL <3 SEC. PT HAS TRACE EDEMA TO LLE. PT LUNG SOUNDS ARE CTA ON RA. PT BREATHING EVEN AND UNLABORED. PT DENIES SOB OR RESPIRATORY DISTRESS AT THIS TIME. PT ABD SOFT AND ROUND. PT IS OBESE. PT BOWEL SOUNDS ACTIVE X4. PT DENIES N/V/D AT THIS TIME. PT HAS DAVIS CATH DRAINING YELLOW URINE. PT STRAIGHT CATH HIMSELF AT HOME. PT HAS GENERALIZED WEAKNESS AND IS WHEELCHAIR BOUND. PT REQUIRES ASSIST WHEN TRANSFERRING FROM BED TO WHEELCHAIR. PT HAS LEFT RESIDUAL LIMP OPEN WOUND-DREDGE HAND, HEALED INCISION TO LEFT UPPER THIGH-DREDGE HAND, AND SCAB TO RIGHT LATERAL ANKLE. PT IS ON AIR MATTRESS. PT C/O PAIN TO BLE AND GROIN AREA. WILL MEDICATE FOR PAIN PER MAR. PT IV IS PATENT AND INTACT. NO S/S OR REDNESS, PAIN, OR SWELLING NOTED. DRESSING CHANGED ON IV. PT CALM AND COOPERATIVE WITH NURSING CARE. CALL LIGHT WITHIN REACH. BED IN LOWEST POSITION. SIDE RAILS X2 UP. WILL CONTINUE TO MONITOR.
--- NOTE | 2019-03-21 23:42 | NUR ---
SPOKE TO [facility] LABORATORY TECHNICIAN- CONFIRMED THAT SHE GOT BACK THE FAXED TRANSFER BACK AGREEMENT FORM.
--- NOTE | 2019-03-22 01:09 | NUR ---
SPOKE TO DR. SCALNON AND WAS MADE THAT THE PT IS ACCEPTED IN [facility], POSSIBLY MIGHT HAPPEN TODAY AT 06:30H. PER DR. SCANLON CONTINUE THE MEDICATIONS THAT THE PATIENT HAS BEEN RECEIVING IN THE HOSPITAL ON TRANSFER. PRIMARY NURSE TOM MADE AWARE OF THE ABOVE
[2019-03-22] MEDS ORDERED: ZESTRIL20 MG PO (01:18)
[2019-03-22] MEDS ORDERED: AZACTAM IV (01:18)
[2019-03-22] MEDS ORDERED: [UNRECOGNIZED DRUG - CODE] IVP (01:19)
[2019-03-22] MEDS ORDERED: DILAUDID IVP (01:19)
[2019-03-22] MEDS ORDERED: VANCOMYCIN1 GM/2001 IV (01:20)
[2019-03-22] MEDS ORDERED: APAP500 MG PO (01:20)
[2019-03-22] MEDS ORDERED: ACCU-CHEK AVIV1 EACH MC (01:21)
[2019-03-22] MEDS ORDERED: MORPHINE 11 MG/2 ML IVP (01:21)
[2019-03-22] MEDS ORDERED: DEXTROSE 50%-WA50 M1 IV (01:22)
[2019-03-22] MEDS ORDERED: HUMULIN R100 U/1 M1 SQ (01:23)
--- NOTE | 2019-03-22 02:51 | NUR ---
PT IV WAS REMOVED BY PT WHILE SLEEPING ON IT. CATH INTACT. CHANGED LINENS AND GOWN. ASSISTED PT TO RESTROOM AND BACK TO BED. ATTEMPTED TO REINSERT NEW IV, BUT UNSUCCESSFUL AT THIS TIME. PT SAID "NO MORE POKING." INFORMED PT THAT IV NEEDS TO BE INSERTED AND WILL LET HIM REST FIRST BEFORE ATTEMPTING AGAIN.
--- NOTE | 2019-03-22 04:53 | NUR ---
NEW IV INSERTION SUCCESSFUL. LFA 22G. GOOD BLOOD RETURN. FLUSHED 10CC OF NS. NO S/S OR REDNESS, PAIN, OR SWELING NOTED. WILL CONTINUE TO MONITOR.
--- NOTE | 2019-03-22 05:14 | NUR ---
PT SLEPT MOST OF THE NIGHT. PT COMPLIED WITH NURSING CARE THROUGHOUT THE SHIFT. NO ACUTE DISTRESS NOTED. COMFORT AND SAFETY MEASURES MAINTAINED DURING THE SHIFT. ALL QUESTIONS AND CONCERNS ADDRESSED. WILL ENDORSE CARE TO DAY SHIFT NURSE. WILL CONTINUE TO MONITOR.
[2019-03-22 05:32] VITALS: BP 126/79
--- NOTE | 2019-03-22 06:46 | NUR ---
SPOKE TO MARYANA TO GET UPDATE ON ROOM ASSIGNMENT SHE STATED THAT NO TELE BED YET BUT PATIENT IS ACCEPTED ALREADY, DR SCANLON ADMITTING MD AND DR THOMAS- UROLOGY CONSULT.MARYANA WILL BE SIGNING OUT SOON AND WILL RELAY AND REPORT UPDATES TO INCOMING PERSON ERWIN.WILL RELAY THIS UPDATE TO OMID GUTIERREZ.
[2019-03-22 06:57] LABS: PLATELET COUNT 174 x10^3mcL (130-400); RED CELL DISTRIBUTION WIDTH 13.2 % (11.5-14.5)
--- NOTE | 2019-03-22 07:00 | NUR ---
RECEIEVED REPORT FROM SNOW REMOVER NURSE PATIENT SITTING UP IN BED ON HIS PHONE A&O X4, IV ON LFA PATENT AND INTACT. PATIENT REQUAETING PAIN MEDS PAIN MED NOT DUE YET OFFERRED REPOSITION AND RELAXATION TECHNIQUES. WILL BRING MED WHEN DUE. DAVIS CATHETER DRAINING TO GRAVITY YELLOW URINE. DENIES ANY SOB AT THIS TIME. ALL QUESTIONS AND CONCERNS ADDRESSED AT THIS TIME. BED IN LOWEST POSITION CALL LIGHT WITHIN REACH. WILL CONTINUE TO MONITOR.
[2019-03-22 07:07] LABS: BASOPHIL % 0 % (0-2)
[2019-03-22 08:19] LABS: ALKALINE PHOSPHATASE 88 U/L (46-116); ALT/SGPT 36 U/L (16-63); AST/SGOT 20 U/L (15-37); BILIRUBIN TOTAL 0.76 mg/dL (0.20-1.00); CALCIUM 8.8 mg/dL (8.5-10.1); CARBON DIOXIDE 21.6 mmol/L (21-32); CHLORIDE SERUM 95 mmol/L (98-107); CREATININE SERUM 1.3 mg/dL (0.7-1.3); GFR1 > 60 mL/min; GLUCOSE SERUM 189 mg/dL (74-106); POTASSIUM SERUM 4.6 mmol/L (3.5-5.1); SODIUM SERUM 129 mmol/L (136-145); TOTAL PROTEIN, SERUM 7.5 g/dL (6.4-8.2)
[2019-03-22 08:25] LABS: ALBUMIN 2.6 g/dL (3.4-5.0)
[2019-03-22 08:26] VITALS: BP 139/86
--- NOTE | 2019-03-22 08:36 | NUR ---
PATIENT C/O OF PAIN IN SCROTAL 11/14 ADMINISTERED DILAUDID IVP PER JUN. PATIENT TOLERATED WELL NO ADVERSE REACTIONS NOTED. ALL SCHEDULAED MEDS ADMINISTERED. ALL QUESTIONS AND CONCERNS ADDRESSED AT THIS TIME. BED IN LOWEST POSITION CALL LIGHT WITHIN REACH. WILL CONTINUE TO MONITOR.
--- NOTE | 2019-03-22 11:49 | NUR ---
PATIENT LYING IN BED WITH EYE CLOSED DENIES ANY PAIN AT THIS TIME. GLUCOSE 187 ADMINISTERED 3U REG INSULIN PER SLIDING SCALE. ALL NEEDS ATTENDED TO AT THIS TIME. BED IN LOWEST POSITION CALL LIGHT WITHIN REACH. WILL CONTINUE TO MONITOR.
[2019-03-22 12:08] VITALS: BP 106/50
--- NOTE | 2019-03-22 14:49 | NUR ---
PATIENT SITTING UP IN BED WATCHING TV DENIES ANY PAIN AT THIS TIME. ALL NEEDS ATTNDED TO . BED IN LOWEST POSITION CALL LIGHT WITHIN REACH. WILL CONTINUE TO MONITOR.
[2019-03-22 16:40] VITALS: BP 120/75
--- NOTE | 2019-03-22 17:05 | NUR ---
PATIENT LYING IN BED WATCHING TV C/O PAIN IN SCROTUM OFFERRED WARM BLANKET TO ACT BARRIER PATIENT STATED"THANK YOU THAT FEELS MUCH BETTER" DIMMED LIGHTS FOR COMFORT. ALL QUESTIONS AND CONCERNS ADDRESSED AT THIS TIME. BED IN LOWEST POSITION CALL LIGHT WITHIN REACH. WILL CONTINUE TO MONITOR.
--- NOTE | 2019-03-22 18:30 | NUR ---
PATIENT LYING IN BED WATCHING TV DENIES ANY PAIN AT THIS TIME. IV ON LFA PATENT AND INTACT. NO S/S OF ANY ACUTE DISTRESS NOTED. DAVIS DRAINING TO GRAVITY YELLOW URINE WITH WHITE CHUNKS, SCROTOL AND PENILE EDEMA NOTED NO DISCHARGE OR REDNESS. ALL NEEDS ATTNDED TO AT THIS TIME WILL ENDORSE CARE TO NIGHT NURSE.
--- NOTE | 2019-03-22 20:40 | NUR ---
pt off floor going AMA, paperwork signed by patient, at bedside. removed telemonitor, iv removed, cath intact. removed pt haskins cath, pt tolerated well. all questions and concerns addressed, call light within reach, bed in lowest positon, will continue to monitor.
--- NOTE | 2019-03-23 08:26 | NUR ---
WOUND CARE CONSULT NOT DONE, PT. DISCHARGED.
[2019-03-26 05:08] LABS: CK-BB 0 % (0); CK-MB 0 % (0-3); CK-MM 100 % (97-100); MACRO TYPE 1 0 % (Not Observed); MACRO TYPE 2 0 % (Not Observed)
== END 2019-03-22 20:40 | disposition left against medical advice (07) | DRG 720 ==
LOC: ED 22:56 → DU 03-20 01:57
PROVIDERS: Emergency Medicine; ADMIT Internal Medicine
DX: A41.9 Sepsis, unspecified organism (principal); N17.9 Acute kidney failure, unspecified; E11.65 Type 2 diabetes mellitus with hyperglycemia; E66.01 Morbid (severe) obesity due to excess calories; N49.2 Inflammatory disorders of scrotum; E87.1 Hypo-osmolality and hyponatremia; Z53.21 Procedure and treatment not carried out due to patient leaving prior to being seen by health care provider; Z79.4 Long term (current) use of insulin; Z89.512 Acquired absence of left leg below knee; Z79.84 Long term (current) use of oral hypoglycemic drugs; Z88.1 Allergy status to other antibiotic agents; Z88.2 Allergy status to sulfonamides; Z68.39 Body mass index [BMI] 39.0-39.9, adult; Z79.899 Other long term (current) drug therapy
CPT/HCPCS: 82962; G0378; J0690; J1170; J1815; J1885; J2270; J2405; J3010; J3370; J3490; J7030; J7060; Q0092

== ENCOUNTER 2020-01-21 12:08 | Emergency (ER) | payer OTHER ==
[~2020-01-21] VITALS: Ht 188 cm; Wt 127.0 kg
[~2020-01-21 12:08] MED LIST changes: +ACCU-CHEK AVIV1 EACH MC; +ALOGLIPTIN25 MG PO; +APAP500 MG PO; +AZACTAM IV; +DEXTROSE 50%-WA50 M1 IV; +DILAUDID IVP; +HUMULIN R100 U/1 M1 SQ; +HYDRALAZINE HCL25 MG PO; +MORPHINE 11 MG/2 ML IVP; +OXYC PO; +PRINIVIL20 MG PO; +VANCOMYCIN1 GM/2001 IV; +ZESTRIL20 MG PO; +[UNRECOGNIZED DRUG - CODE] IVP
[2020-01-21 12:20] VITALS: Ht 188 cm; Wt 127.0 kg
[2020-01-21 15:05] VITALS: BP 114/72
== END 2020-01-21 15:05 | disposition home or self-care (01) ==
LOC: ED 12:08
DX: Z89.612 Acquired absence of left leg above knee (principal); I10 Essential (primary) hypertension; E11.9 Type 2 diabetes mellitus without complications; Z88.2 Allergy status to sulfonamides; Z88.1 Allergy status to other antibiotic agents

== ENCOUNTER 2020-04-23 21:10 | Emergency (ER) | payer OTHER ==
[~2020-04-23] VITALS: Ht 188 cm; Wt 130.6 kg
[2020-04-23 21:38] VITALS: BP 143/90
== END 2020-04-24 01:21 | disposition home or self-care (01) ==
LOC: ED 21:10
DX: N45.1 Epididymitis (principal); I10 Essential (primary) hypertension; E11.9 Type 2 diabetes mellitus without complications; Z88.2 Allergy status to sulfonamides; Z88.1 Allergy status to other antibiotic agents
CPT/HCPCS: J1885